=== PATIENT | female | born 1975 | race African-American/Black ===

== ENCOUNTER 2017-02-12 19:51 | Emergency (ER) | payer MEDICAID ==
[~2017-02-12] VITALS: Ht 149.9 cm; Wt 66.0 kg
[2017-02-12 20:42] LABS: CLARITY URINE CLEAR (CLEAR); COLOR URINE YELLOW (YELLOW); GLUCOSE URINE NEGATIVE (NEGATIVE); KETONES URINE NEGATIVE (NEGATIVE); LEUKOCYTE ESTERASE URINE 3+ (NEGATIVE); NITRITE URINE NEGATIVE (NEGATIVE); OCCULT BLOOD URINE TRACE (NEGATIVE); PH URINE 5.5 (4.5-8.0); PROTEIN URINE 1+ (NEGATIVE); SPECIFIC GRAVITY URINE 1.033 (1.005-1.030)
[2017-02-13] MEDS ORDERED: IBUPROFEN 600MG TABLET PO ONE (07:30)
[2017-02-13 07:56] VITALS: BP 120/80
== END 2017-02-13 08:02 | disposition home or self-care (01) ==
LOC: ER 21:15
DX: A59.01 Trichomonal vulvovaginitis (principal); N39.0 Urinary tract infection, site not specified
CPT/HCPCS: 81001; 81025; 87210; 99284

== ENCOUNTER 2019-05-29 17:10 | Emergency (ER) | payer MEDICAID ==
[~2019-05-29] VITALS: Ht 149.9 cm; Wt 69.0 kg
[2019-05-29] MEDS ORDERED: IBUPROFEN 600MG TABLET PO ONE (19:15)
[2019-05-29 20:28] VITALS: BP 129/80
== END 2019-05-29 20:29 | disposition home or self-care (01) ==
LOC: ER 17:45
DX: J06.9 Acute upper respiratory infection, unspecified (principal); Z88.0 Allergy status to penicillin; Z98.890 Other specified postprocedural states
CPT/HCPCS: 87804; 99283

== ENCOUNTER 2020-09-09 11:01 | Emergency (ER) | payer MEDICAID ==
[~2020-09-09] VITALS: Ht 149.9 cm; Wt 72.0 kg
[2020-09-09] MEDS ORDERED: SULF1TAB48 MT (12:44)
[2020-09-09] MEDS ORDERED: IBUP-2029 MT (12:44)
[2020-09-09] MEDS ORDERED: IBUPROFEN 600MG TABLET PO ONE (12:45)
[2020-09-09 13:17] VITALS: BP 130/80
== END 2020-09-09 13:17 | disposition home or self-care (01) ==
LOC: ER 11:01
DX: S80.861A Insect bite (nonvenomous), right lower leg, initial encounter (principal); L03.115 Cellulitis of right lower limb; Z98.890 Other specified postprocedural states; Z88.0 Allergy status to penicillin; W57.XXXA Bitten or stung by nonvenomous insect and other nonvenomous arthropods, initial encounter; Y93.89 Activity, other specified; Y92.018 Other place in single-family (private) house as the place of occurrence of the external cause
CPT/HCPCS: 99282

== ENCOUNTER 2020-12-11 19:25 | Emergency (ER) | payer MEDICAID ==
[~2020-12-11] VITALS: Ht 149.9 cm; Wt 73.0 kg
[~2020-12-11 19:25] MED LIST: IBUP-2029 MT; SULF1TAB48 MT
[2020-12-11] MEDS ORDERED: CEPHALEXIN 250MG CAPSULE PO ONE (20:15)
[2020-12-11] MEDS ORDERED: CEPH250C2 MT (20:20)
[2020-12-11 20:43] VITALS: BP 136/66
== END 2020-12-11 20:44 | disposition home or self-care (01) ==
LOC: ER 19:25
DX: S40.862A Insect bite (nonvenomous) of left upper arm, initial encounter (principal); S80.862A Insect bite (nonvenomous), left lower leg, initial encounter; S80.861A Insect bite (nonvenomous), right lower leg, initial encounter; W57.XXXA Bitten or stung by nonvenomous insect and other nonvenomous arthropods, initial encounter; Y93.9 Activity, unspecified; Y92.9 Unspecified place or not applicable; Z98.890 Other specified postprocedural states
CPT/HCPCS: 99283

== ENCOUNTER 2023-08-31 21:22 | Emergency (ER) | payer MEDICAID ==
[~2023-08-31] VITALS: Ht 149.9 cm; Wt 73.0 kg
[~2023-08-31 21:22] MED LIST changes: +CEPH250C2 MT
[2023-08-31 21:32] VITALS: BP 171/100; PULSE 80; RESP 16; TEMP 98.6; O2SAT 100
[2023-08-31 22:07] LABS: CLARITY URINE CLEAR (CLEAR); COLOR URINE YELLOW (YELLOW); GLUCOSE URINE NEGATIVE (NEGATIVE); KETONES URINE NEGATIVE (NEGATIVE); LEUKOCYTE ESTERASE URINE NEGATIVE (NEGATIVE); NITRITE URINE NEGATIVE (NEGATIVE); OCCULT BLOOD URINE NEGATIVE (NEGATIVE); PH URINE 6.5 (4.5-8.0); PROTEIN URINE TRACE (NEGATIVE); SPECIFIC GRAVITY URINE 1.025 (1.005-1.030); UROBILINOGEN URINE 0.2 E.U./dL (0.2-1.0)
[2023-08-31 22:34] LABS: BACTERIA URINE 1+; RBC URINE 0-2 /hpf (0-2); SQUAMOUS EPITHELIAL CELL URINE 1+ /lpf (RARE/1+); WBC URINE 0-2 /hpf (0-2)
[2023-08-31 23:00] LABS: BASOPHILS % 0.8 % (0.0-2.0); EOSINOPHILS % 3.4 % (0.0-5.0); HEMATOCRIT. 33.7 % (36.0-48.0); HEMOGLOBIN. 11.3 g/dL (12.0-16.0); LYMPHOCYTES % 48.4 % (20.0-50.0); MEAN CORPUSCULAR HEMOGLOBIN 31.1 pg (28.0-32.0); MEAN CORPUSCULAR HGB CONC 33.7 g/dL (31.0-37.0); MEAN CORPUSCULAR VOLUME 92.3 fL (81.0-99.0); MEAN PLATELET VOLUME 8.5 fl (7.4-10.4); MONOCYTES % 9.4 % (2.0-8.0); PLATELET 269 x1000/uL (130-400); RED BLOOD CELL COUNT 3.65 mill/uL (4.2-5.4); RED CELL DISTRIBUTION WIDTH 14.5 % (11.6-14.6)
[2023-08-31 23:06] LABS: CHLORIDE 108 mEq/L (98-107); POTASSIUM 3.7 mEq/L (3.5-5.1); SODIUM 140 mEq/L (136-145)
[2023-08-31 23:07] LABS: CARBON DIOXIDE 26 mEq/L (21-32)
[2023-08-31 23:08] LABS: CALCIUM 8.6 mg/dL (8.7-10.4)
[2023-08-31 23:12] LABS: CREATININE 0.7 mg/dL (0.6-1.0)
[2023-08-31 23:13] LABS: GLUCOSE 94 mg/dL (70-105); UREA NITROGEN BLOOD 15 mg/dL (9-23)
== END 2023-09-01 02:56 | disposition home or self-care (01) ==
LOC: ER 21:22
DX: K62.5 Hemorrhage of anus and rectum (principal); K64.4 Residual hemorrhoidal skin tags
CPT/HCPCS: 36415; 80048; 81003; 81025; 85025; 99283